=== PATIENT | male | born 1950 | race Caucasian/White ===

== ENCOUNTER 2019-04-17 12:22 | Emergency (ER) | payer MEDICARE, MEDICAID ==
[~2019-04-17] VITALS: Ht 182.9 cm; Wt 82.0 kg
[2019-04-17] MEDS ORDERED: OXYCODONE HCL/ACETAMINOPHEN 5/325MG TABLET PO ONE (14:30)
== END 2019-04-17 19:04 | disposition home or self-care (01) ==
LOC: ER 12:22
DX: L03.113 Cellulitis of right upper limb (principal); G81.94 Hemiplegia, unspecified affecting left nondominant side; J45.909 Unspecified asthma, uncomplicated
CPT/HCPCS: 99283

== ENCOUNTER 2021-11-21 07:47 | Emergency (ER) | payer MEDICAID, OTHER ==
[~2021-11-21] VITALS: Ht 172.7 cm; Wt 59.0 kg
[2021-11-21 08:47] LABS: BASOPHILS % 0.5 % (0.0-2.0); EOSINOPHILS % 0.2 % (0.0-5.0); HEMOGLOBIN. 13.7 g/dL (14.0-18.0); LYMPHOCYTES % 15.1 % (20.0-50.0); MEAN CORPUSCULAR HEMOGLOBIN 30.4 pg (28.0-32.0); MEAN CORPUSCULAR VOLUME 91.2 fL (80.0-94.0); MEAN PLATELET VOLUME 8.7 fl (7.4-10.4); MONOCYTES % 6.7 % (2.0-8.0); NEUTROPHILS % 77.5 % (40.0-76.0); PLATELET 238 x1000/uL (130-400); RED CELL DISTRIBUTION WIDTH 13.8 % (11.6-14.6)
[2021-11-21] MEDS ORDERED: ALBUTEROL 6.7GM HFA INHALER ORI ONE (09:15)
[2021-11-21] MEDS ORDERED: DEXAMETHASONE 2MG TABLET PO ONE (09:15)
[2021-11-21 09:30] LABS: CHLORIDE 111 mEq/L (98-107)
[2021-11-21 09:40] LABS: ETHANOL BLOOD < 10 mg/dL
[2021-11-21 10:06] LABS: *AMPHETAMINES SCREEN URINE NEGATIVE (NEGATIVE); *BARBITURATES SCREEN URINE NEGATIVE (NEGATIVE); *BENZODIAZEPINES SCREEN URINE NEGATIVE (NEGATIVE); *COCAINE SCREEN URINE NEGATIVE (NEGATIVE); CANNABINOID URINE SCREEN PRESUMTIVE POSITIVE (NEGATIVE); METHADONE URINE SCREEN NEGATIVE (NEGATIVE); OPIATES URINE SCREEN PRESUMTIVE POSITIVE (NEGATIVE); PHENCYCLIDINE URINE SCREEN NEGATIVE (NEGATIVE)
[2021-11-21] MEDS ORDERED: MED4 MT (13:10)
[2021-11-21] MEDS ORDERED: ALBU6.7H9 INH (13:10)
[2021-11-21] MEDS ORDERED: ALBU05 NEB (13:10)
[2021-11-22] MEDS ORDERED: LORAZEPAM 1MG TABLET PO ONE (01:30)
[2021-11-22 07:05] VITALS: BP 103/70
== END 2021-11-22 14:57 | disposition home or self-care (01) ==
LOC: ER 07:47
DX: J40 Bronchitis, not specified as acute or chronic (principal); Z86.73 Personal history of transient ischemic attack (TIA), and cerebral infarction without residual deficits; F17.290 Nicotine dependence, other tobacco product, uncomplicated; F12.10 Cannabis abuse, uncomplicated; Z20.822 Contact with and (suspected) exposure to COVID-19
CPT/HCPCS: 36415; 71045; 80053; 80305; 80320; 83690; 83880; 84484; 85025; 87426; 93005; 99285; C9803; J8540; Z7610; G0480

== ENCOUNTER 2022-11-13 21:04 | Emergency (ER) | payer OTHER, MEDICAID ==
[~2022-11-13] VITALS: Ht 165.1 cm; Wt 70.0 kg
[~2022-11-13 21:04] MED LIST: ALBU05 NEB; ALBU6.7H3 INH; MED4 MT
[2022-11-13 21:09] VITALS: O2SAT 100
[2022-11-13] MEDS ORDERED: KETOROLAC 30MG/ML VIAL IM ONE (23:00)
[2022-11-14] MEDS ORDERED: IBUP-2028 MT (01:02)
[2022-11-14] MEDS ORDERED: KETOROLAC 30MG/ML VIAL IM NR ×2 (01:30→08:15)
[2022-11-14] MEDS ORDERED: LORAZEPAM 1MG TABLET PO ONE (06:15)
[2022-11-14] MEDS ORDERED: LORAZEPAM 1MG TABLET PO NR (08:15)
[2022-11-14 17:48] VITALS: BP 138/78; PULSE 92; RESP 16; TEMP 98
== END 2022-11-14 18:21 | disposition home or self-care (01) ==
LOC: ER 21:04
DX: M79.10 Myalgia, unspecified site (principal); F12.10 Cannabis abuse, uncomplicated; J44.9 Chronic obstructive pulmonary disease, unspecified; Z86.73 Personal history of transient ischemic attack (TIA), and cerebral infarction without residual deficits; Z79.899 Other long term (current) drug therapy
CPT/HCPCS: 99285; 73130; 29125; J1885; 96372